=== PATIENT | male | born 1995 | race Caucasian/White ===

== ENCOUNTER → 2019-02-19 15:45 | Emergency (ER) | payer OTHER ==
--- NOTE | 2019-02-19 16:03 | ED ---
Lower Extremity - HPI Summary HPI Summary: 23 yo male presents to [facility] with complaints of right knee and big toe pain with right calf swelling for the last 2 weeks. He states he noticed this suddenly 2 weeks ago without injury or overuse. Since that time he has noticed that his pain and swelling are worse after being on his feet all day and with ambulation. He has not taken anything OTC for his discomfort. No recent travel, fever, chills, numbness, tingling, personal or fam hx of blood clots. He does smoke daily. - History of Current Complaint Chief Complaint: EDExtremityLower Stated Complaint: RIGHT LEG SWELLING X 2 WEEKS PER PT Time Seen by Provider: 02/19/19 16:03 Hx Obtained From: Patient Severity Initially: Moderate Severity Currently: Moderate Pain Intensity: 6 Pain Scale Used: 0-10 Numeric - Allergies/Home Medications Allergies/Adverse Reactions: Allergies Allergy/AdvReac Type Severity Reaction Status Date / Time iodine Allergy Swelling Verified 02/19/19 15:53 Penicillins Allergy Hives Verified 02/19/19 15:53 PMH/Surg Hx/FS Hx/Imm Hx Endocrine/Hematology History: Denies: Hx Anticoagulant Therapy, Hx Blood Disorders, Hx Unexplained Bleeding , Hx Coagulopothy Cardiovascular History: Denies: Hx Myocardial Infarction Respiratory History: Denies: Hx Asthma, Hx Chronic Obstructive Pulmonary Disease (COPD) Musculoskeletal History: Denies: Hx Back Problems, Hx Fibromyalgia, Hx Gout Neurological History: Denies: Hx CVA - Surgical History Surgical History: None - Immunization History Immunizations Up to Date: Yes Infectious Disease History: No Infectious Disease History: Denies: Traveled Outside the [place] in Last 30 Days - Family History Known Family History: Positive: Non-Contributory - Social History Lives: With Family Alcohol Use: Occasionally Substance Use Type: Reports: Marijuana Smoking Status (MU): Current Every Day Smoker Review of Systems Constitutional: Negative Cardiovascular: Negative Respiratory: Negative Gastrointestinal: Negative Musculoskeletal: Other - Right knee and big toe pain with calf swelling Skin: Negative Neurological: Negative Psychological: Normal All Other Systems Reviewed And Are Negative: Yes Physical Exam - Summary Physical Exam Summary: GENERAL: NAD. WDWN. No pain distress. SKIN: No rashes, sores, lesions, or open wounds. CHEST: No accessory muscle use. Breathing comfortably and in no distress. CV: Pulses intact popliteal, PT, and DP. Cap refill <2seconds MSK: RIGHT KNEE: FROM. Strength 5/5. No edema or obvious bony deformities. No patella apprehension. Negative Adam, A/P drawer, Alvin, and varus/valgus stress. RIGHT FOOT: NTTP. FROM at all toes. Pain at 1st MTP with flexion. No calf edema appreciated - soft and NTTP without palpable cord. NEURO: Alert. Sensations intact and symmetric B/L LEs PSYCH: Age appropriate behavior. Triage Information Reviewed: Yes Vital Signs On Initial Exam: Initial Vitals Temp Pulse Resp BP Pulse Ox 98.2 F 93 16 154/96 98 02/19/19 15:49 02/19/19 15:49 02/19/19 15:49 02/19/19 15:49 02/19/19 15:49 Vital Signs Reviewed: Yes Diagnostics - Vital Signs Vital Signs Temp Pulse Resp BP Pulse Ox 02/19/19 15:49 98.2 F 93 16 154/96 98 - Laboratory Lab Statement: Any lab studies that have been ordered have been reviewed, and results considered in the medical decision making process. - Radiology knee Radiology Interpretation Completed By: Radiologist Summary of Radiographic Findings: IMPRESSION: Small suprapatellar right knee joint effusion without radiographically. apparent bony abnormality. If the patient's symptoms persist, follow-up imaging is recommended. foot Radiology Interpretation Completed By: Radiologist Summary of Radiographic Findings: IMPRESSION: Normal radiograph of the right foot. If the patient's symptoms persist, follow-up imaging is recommended. - Ultrasound right leg Ultrasound Interpretation Completed By: Radiologist Summary of Ultrasound Findings: IMPRESSION: 1. No sonographic evidence of deep vein thrombosis. 2. Right leg Crawford's cyst. Lower Extremity Course/Dx - Course Course Of Treatment: XRs and US as above. Discussed results with pt. Suspect an internal derangement of his knee or patellofemoral syndrome that is causing his knee swelling. Recommended that he RICE and f/u with Orthopedics for further evaluation. - Diagnoses Provider Diagnoses: Knee pain, Bakers cyst Discharge - Sign-Out/Discharge Documenting (check all that apply): Patient Departure Patient Received Moderate/Deep Sedation with Procedure: No - Discharge Plan Condition: Stable Disposition: HOME Patient Education Materials: Bakers Cyst (ED) Referrals: Nazia Valentino MD [Medical Doctor] - David Reilly MD [Medical Doctor] - As Soon As Possible Additional Instructions: If you develop a fever, shortness of breath, chest pain, new or worsening symptoms - please call your PCP or go to the ED immediately. Your blood pressure was high at todays visit. Please see your primary provider within 4 weeks for recheck and re-evaluation. 1) Your ultrasound revealed a crawford's cyst behind your knee 2) Rest, Ice, and elevate your knee to reduce pain and swelling 3) I recommend that you follow up with Orthopedics within 1 week for further evaluation of your knee pain - Billing Disposition and Condition Condition: STABLE Disposition: Home
[2019-02-19 19:51] VITALS: BP 150/90
== END | disposition home or self-care (01) ==
LOC: ED 15:45
DX: M71.21 Synovial cyst of popliteal space [Baker], right knee (principal); F17.210 Nicotine dependence, cigarettes, uncomplicated; Z88.0 Allergy status to penicillin; Z91.041 Radiographic dye allergy status
CPT/HCPCS: 99282